=== PATIENT | female | born 1960 | race Caucasian/White ===

== ENCOUNTER 2021-03-08 21:18 | Inpatient (IN) | payer BC ==
[~2021-03-08] VITALS: Ht 147.3 cm; Wt 50.2 kg
[2021-03-08 22:30] LABS: Hematocrit 30.6 % (33.0-51.0); Hemoglobin 10.3 g/dL (11.5-16.0); Mean Corpuscular HGB 29.5 pg (26.0-34.0); Mean Corpuscular HGB Conc 33.7 g/dL (31.5-36.5); Mean Corpuscular Volume 88 fL (80-100); Mean Platelet Volume 12.8 fL (9.1-12.4); NRBC ABSOLUTE 0.08 K/mm3 (0.00-0.02); NRBC Auto 0.5 /100 WBC (0.0-0.2); Platelet Count 240 K/mm3 (150-400); RDW Coefficient Variation 14.2 % (11.7-14.2); RDW Standard Deviation 45.4 fL (35.1-46.3); Red Blood Cell Count 3.49 M/mm3 (3.80-5.20); White Blood Cell Count 15.47 K/mm3 (4.00-11.30)
[2021-03-08 22:43] LABS: Source, Urine Catheter
[2021-03-08 22:44] LABS: Bilirubin, Urine Neg (Neg); Blood, Urine 4+ (Neg); Glucose Qualitative, Urine 2+ (Neg); Ketones, Urine 1+ (Neg); Leukocyte Esterase, Urine Neg (Neg); Nitrite, Urine Neg (Neg); Protein, Urine 2+ (Neg); Specific Gravity, Urine 1.015 (1.003-1.022); Urobilinogen, Urine NORM (Normal)
[2021-03-08 22:46] LABS: International Normalized Ratio 2.6; Prothrombin Time Results 26.6 Sec (9.7-11.5)
[2021-03-08 22:47] LABS: Appearance, Urine Clear (Clear); Color, Urine Yellow (P-Yellow)
[2021-03-08 22:50] LABS: BAND PERCENT MAN 5 % (0-8); BASOPHILS PERCENT MAN 0 % (0-2); EOSINOPHILS PERCENT MAN 0 % (0-6); LYMPHOCYTES ABSOLUTE MAN 2.01 K/mm3 (0.84-5.20); LYMPHOCYTES PERCENT MAN 13 % (21-46); METAMYELOCYTE ABSOLUTE MAN 0.46 K/mm3 (0.00-0.00); METAMYELOCYTE PERCENT MAN 3 % (0-0); MONOCYTES ABSOLUTE MAN 0.92 K/mm3 (0.16-1.47); MONOCYTES PERCENT MAN 6 % (4-13); MYELOCYTE ABSOLUTE MAN 0.61 K/mm3 (0.00-0.00); MYELOCYTE PERCENT MAN 4 % (0-0); NEUTROPHILS ABSOLUTE MAN 11.44 K/mm3 (1.96-9.15); SEG NEUTROPHILS PERCENT MAN 69 % (41-73); TOTAL CELLS COUNTED 100
[2021-03-08 22:53] LABS: Magnesium, Blood 1.6 mg/dL (1.6-2.4)
[2021-03-08 22:58] LABS: Bacteria Few /hpf; Red Blood Cells, Urine 0-2 /hpf (0-2); Squamous Epithelial Cells Mod /hpf (Few); White Blood Cells, Urine Rare /hpf (0-5)
[2021-03-08 23:00] LABS: Bun/Creatinine Ratio 13.5 (12.0-20.0); Calcium, Blood 6.7 mg/dL (8.5-10.1); Creatinine, Blood 9.18 mg/dL (0.40-1.00); Potassium, Blood 5.1 mmol/L (3.5-5.5)
--- NOTE | 2021-03-09 01:00 | NUR ---
PT ARRIVES TO ICU 13 FROM ED AT 0035. PT SLIDE TRANSFERRED TO BED FROM [facility]. PT ABLE TO ANSWER QUESTIONS WITH SOME RELIABITY. PT'S TO ROOM WHO IS PT'S SUPPORT PERSON. HANNY, IS ABLE TO ANSWER ALL OF PT'S CARE QUESTIONS. PT HAS DIFFICULTY WITH MEMORY SECONDARY TO PREVIOUS TIA'S. LEVOPHED AT 10 MCG'S/MIN UPON ARRIVAL. THIS HAS BEEN DECREAED TO 8 MCG'S. WILL CONTINUE TO MONITOR FOR ABILITY TO TITRATE LEVOPHED LOWER. PT ON 2 L/M OXYGEN UPON ARRIVAL. HAVE REMOVED CANNULA. PT HAS BEEN ABLE TO MAINTAIN > 90 PERCENT SATURATIONS ON ROOM AIR. WILL REVIEW CHART AND PLAN OF CARE FOR THIS PT.
[2021-03-09 02:03] LABS: Acetaminophen, Random <2.0 ug/mL (10.0-30.0); Salicylate <1.7 mg/dL (2.8-20.0)
[2021-03-09 02:04] LABS: Osmolality, Serum 332 mos/KG (275-300)
[2021-03-09] MEDS ORDERED: JANTOVEN4 M2 PO (02:04)
[2021-03-09] MEDS ORDERED: WARF6 PO (02:05)
[2021-03-09] MEDS ORDERED: TRIAMT/HCTZ TAB 37. PO (02:07)
[2021-03-09] MEDS ORDERED: Ventolin/Prove6.7 GM INH (02:09)
[2021-03-09] MEDS ORDERED: METO25ER PO (02:10)
[2021-03-09] MEDS ORDERED: GEMFIBROZIL600 MG PO (02:11)
[2021-03-09] MEDS ORDERED: METFORMIN HCL500 M2 PO (02:11)
[2021-03-09] MEDS ORDERED: FOLI1 PO (02:13)
[2021-03-09] MEDS ORDERED: DIAZEPAM5 M2 PO (02:15)
[2021-03-09 03:00] LABS: U Amphetamine Screen Not Detected; U Barbituate Screen Not Detected; U Benzodiazapine Screen DETECTED; U Buprenorphine Screen Not Detected; U Cannabinoids Screen Not Detected; U Cocaine Screen Not Detected; U Methadone Screen Not Detected; U Methamphetamine Screen Not Detected; U Opiates Screen Not Detected; U Oxycodone Screen Not Detected; U Phencyclidine Screen Not Detected; U Propoxyphene Screen Not Detected
[2021-03-09 04:35] LABS: Hematocrit 27.4 % (33.0-51.0); Hemoglobin 9.7 g/dL (11.5-16.0)
[2021-03-09 05:04] LABS: Magnesium, Blood 1.5 mg/dL (1.6-2.4); Thyroid Stimulating Hormone 0.335 uIU/mL (0.360-4.800); Uric Acid, Blood 11.2 mg/dL (2.6-6.0)
[2021-03-09 05:07] LABS: Albumin, Blood 2.7 g/dL (3.4-5.0); Anion Gap 22 mmol/L (6-16); Blood Urea Nitrogen 122 mg/dL (8-24); Bun/Creatinine Ratio 14.1 (12.0-20.0); CO2, Blood 13 mmol/L (21-32); Calcium, Blood 6.4 mg/dL (8.5-10.1); Chloride, Blood 97 mmol/L (98-108); Creatinine, Blood 8.67 mg/dL (0.40-1.00); Glomerular Filtration Rate 5 (60-); Glucose, Blood 284 mg/dL (70-99); Phosphorus, Blood 9.6 mg/dL (2.5-4.9); Potassium, Blood 4.3 mmol/L (3.5-5.5); Sodium, Blood 132 mmol/L (136-145)
[2021-03-09] MEDS ORDERED: LISI5 PO (05:49)
[2021-03-09] MEDS ORDERED: ERGO50000 PO (05:50)
[2021-03-09] MEDS ORDERED: IRON18 MG PO (05:52)
[2021-03-09] MEDS ORDERED: ZYRTEC10 M2 PO (05:53)
--- NOTE | 2021-03-09 06:30 | NUR ---
ART LINE PATENT. HAVE BEEN ABLE TO TITRATE LEVOPHED DOWN TO 4 MCG'S. PT HAS BEEN ABLE TO SLEEP SINCE JUST AFTER ADMIT. REMAINS AT BEDSIDE AND IS VERY ATTENTIVE TO PT'S NEEDS. PT IN NO APPARENT DISTRESS. DOES HAVE COMPLAINT OF FEELING ACHY "ALL OVER" INCLUDING WHEN HER SKIN IS TOUCHED. PT HAS MAINTAINED ON ROOM AIR THROUGH THE NIGHT WITH SATURATIONS REMAINING > 90 PERCENT. HAS HAD 550 ML URINE OUTPUT FROM CATHETER. WILL CONTINUE TO MONITOR PT, AND WILL REPORT OFF TO ONCOMING RN.
--- NOTE | 2021-03-09 18:24 | NUR ---
SIMRAN IS A BIT MORE AWAKE THIS AFTERNOON, ENGAGING WITH SPOUSE AND STAFF. SHE HAS BEEN TURNED ROUTINELY. URINE OUTPUT OF NEARLY 3 LITERS, LEVOPHED DOWN TO 2MCG/MIN, BICARB AT 125ML/HR, ANTIBIOTICS INFUSING. TOLERATES BITES OF MEALS, SWALLOWS WELL BUT COMPLAINS OF PAIN IN THE THROAT AND ALL OVER, NOTIFIED AND ORDERS RECEIVED FOR TRAMADOL PER PT'S HOME ROUTINE. HEART RATE IN THE LOW 100'S, BP 90-100 SYSTOLIC, TITRATING LEVOPHED NECESSARY. ART LINE REMAINS INTACT, SALINE LOCK EACH A/C, CENTRAL LINE RIGHT NECK, AND DIALYSIS CATH LEFT CHEST ALL WNL.
--- NOTE | 2021-03-09 18:30 | NUR ---
PT INCONTINENT OF BOWEL, FONTAINE CATHETER CHANGED OUT PER PROTOCOL. PT TOLERATED WELL, STATED BETTER THAN THE NIGHT BEFORE.
--- NOTE | 2021-03-09 20:00 | NUR ---
ASSUMED CARE OF PT AT 1915. REPORT RECEIVED AT BEDSIDE. PT PRESENTS IN BED. AT BEDSIDE. ATTENTIVE TO PT'S NEEDS. PT ALERT AND ORIENTED. PLEASANT AND COOPERATIVE WITH CARE AND ASSESSMENT. DOES CONTINUE WITH SAYING THAT HER BODY IS ACHY "ALL OVER". CONTINUES ON LEVOPHED DRIP. WILL TITRATE TO MAINTAIN MAP > 65. PT ON ROOM AIR. SATURATIONS > 60. DOES HAVE ADEQUATE URINE OUTPUT. HAD FONTAINE CATHETER CHANGE OUT PRIOR TO THIS RN ASSUMING CARE. WILL REVIEW CHART AND PLAN OF CARE FOR THIS PT.
[2021-03-09 21:39] LABS: Source, Urine Catheter
[2021-03-09 21:40] LABS: Bilirubin, Urine Neg (Neg); Blood, Urine 5+ (Neg); Glucose Qualitative, Urine 3+ (Neg); Ketones, Urine Neg (Neg); Leukocyte Esterase, Urine 2+ (Neg); Nitrite, Urine Neg (Neg); Protein, Urine 2+ (Neg); Urobilinogen, Urine NORM (Normal)
[2021-03-09 21:56] LABS: Appearance, Urine Hazy (Clear); Bacteria Few /hpf; Color, Urine Yellow (P-Yellow); Red Blood Cells, Urine TNTC /hpf (0-2); Squamous Epithelial Cells Few /hpf (Few); Transitional Epithelial Cells Few /hpf (0-Rare)
--- NOTE | 2021-03-09 23:17 | NUR ---
PT TOLERATES TURNS IN BED. UNDERSTANDS RATIONALE FOR PROTECTION OF SKIN INTEGRITY. PT'S HAS LEFT FOR THE NIGHT. LEVOPHED CONTINUES.
[2021-03-10 04:26] LABS: Hematocrit 24.7 % (33.0-51.0)
[2021-03-10 04:47] LABS: Prothrombin Time Results 55.5 Sec (9.7-11.5)
[2021-03-10 04:55] LABS: Magnesium, Blood 1.3 mg/dL (1.6-2.4); Thyroxine (T4) 6.2 ug/dL (4.8-13.9)
[2021-03-10 05:01] LABS: Albumin, Blood 2.6 g/dL (3.4-5.0); Anion Gap 11 mmol/L (6-16); Blood Urea Nitrogen 82 mg/dL (8-24); Bun/Creatinine Ratio 17.2 (12.0-20.0); CO2, Blood 37 mmol/L (21-32); Calcium, Blood 6.3 mg/dL (8.5-10.1); Chloride, Blood 89 mmol/L (98-108); Creatinine, Blood 4.76 mg/dL (0.40-1.00); Glomerular Filtration Rate 10 (60-); Glucose, Blood 265 mg/dL (70-99); Sodium, Blood 137 mmol/L (136-145)
[2021-03-10 05:14] LABS: International Normalized Ratio 5.67
[2021-03-10 05:16] LABS: Phosphorus, Blood 4.9 mg/dL (2.5-4.9); Potassium, Blood 2.3 mmol/L (3.5-5.5)
--- NOTE | 2021-03-10 06:48 | NUR ---
PT HAS BEEN ABLE TO REST THIS NIGHT. HAVE NEEDED TO INCREASE LEVOPHED TO 4 MCG'S TO MAINTAIN MAP > 65. PT'S RETURNED TO ROOM AND STAYED THE NIGHT WITH PT. VERY ATTENTIVE TO PT'S NEEDS. CALL MADE TO DR TEJADA THIS MORNING CONCERNING POTASSIUM LEVEL BEING 2.3 ALL OTHER LAB VALUES GIVEN WELL. ORDERS RECEIVED. WILL CONTINUE TO MONITOR PT, AND WILL REPORT OFF TO ONCOMING RN.
--- NOTE | 2021-03-10 08:30 | NUR ---
PT HAS BEEN RESTING, AWAKENS EASILY TO VOICE. TAKING IN SOME BREAKFAST WITH THE HELP OF . ANTIBIOTIC STARTED, MAGNESIUM INFUSED AND POTASSIUM IS INFUSING. IV CHANGED TO NS @ 100ML/HR. LEVOPHED AT 4MCG/MIN. FONTAINE TO GRAVITY WITH CLEAR YELLOW RETURN. PT CONTINUES TO COMPLAIN OF PAIN ALL OVER, ESPECIALLY HER HEAD AND HER SKIN. DR. TEJADA AND DR. ARNETT IN TO SEE PT AND HAPPY THAT HE WAS ABLE TO SPEAK TO THEM.
--- NOTE | 2021-03-10 14:30 | NUR ---
Initial palliative care consult: Layne is a 60 year old with a history of DM, COPD, HTN, TIA, Aortic valve replacements in 2006 and 2008, Meniere's disease, ARF secondary to sepsis requiring short term HD in 2006, breast cancer with lumpectomy on left s/p chemo and radiation treatments. Layne was admitted from [facility] on 03/08/21. She lives with her , Marcelo, in [place]. Layen was admitted with ARF and fevers. At this point BCs are negative and no clear source of infection or cause of the ARF has been determined. She had a consult with Dr. Selby earlier today and there will be a CT of the abdomen to rule out an abdominal source. Marcelo states he is very happy with the care that Layne has received here and is pleased that he had his questions answered by Dr. Selby earlier today. Layne rested with her eyes closed during the visit. She would answer to yes no questions. She c/o head and generalized body pain and weakness. Marcelo states that in 2006 she had ARF and required several days of HD before her kidney function improved. Marcelo states in 2007 she had similar complaints of generalized body pain. Marcelo and Layne live in [place]. They have help available in their home and Marcelo's job allows flexible hours so he can be available when needed. Layne's mother is here visiting, she lives in [place]. Short supportive, establish rapport visit today as Layne is quite fatigued. PC will remain available for advanced care planning and symptom management as needed.
--- NOTE | 2021-03-10 15:25 | NUR ---
PREPARING TO GO TO CT FOR ABDOMEN/PELVIS SCAN. FIRST BAG OF ALBUMIN IN, POTASSIUM REPLACEMENT ALSO STARTED. FLUIDS CONTINUE AT 100ML/HR. LEVOPHED AT 4MCG/MIN. FONTAINE TO GRAVITY DRAINAGE IN ICE FOR 24 HR URINE COLLECTION. PLEASANT/COOPERATIVE, CONTINUES WITH HEADACHE AND ALL OVER BODY PAIN.
--- NOTE | 2021-03-10 15:28 | NUR ---
LAWRENCE HAS CONTINUED TO HAVE LEAKAGE AROUND HIS FONTAINE CATHETER, HE OPTED EARLIER TODAY TO WAIT TO SEE WHAT HIS UROLOGIST, WANTED TO DO. HE HAS SINCE CHANGED HIS MIND AND AGREED THAT WE COULD CHANGE IT OUT HERE TODAY. HE HAS HAD LESS THAN 100ML OUT IN HIS FONTAINE BAG, THE REMAINDER HAS BEEN LEAKING AROUND HIS CATHETER. HE IS WEARING AN INCONTINENT BRIEF AND THAT IS WORKING FOR HIM BUT HE WOULD PREFER TO NOT HAVE ANY LEAK AT ALL.
--- NOTE | 2021-03-10 16:30 | NUR ---
BACK FROM CT, PT TOLERATED WELL. BP STABLE, LEVOPHED TURNED TO STANDBY. AND MOM IN WITH PATIENT. TAKING IN FLUIDS WITH ENCOURAGEMENT.
--- NOTE | 2021-03-10 17:34 | NUR ---
SIMRAN CONTINUES TO ONLY TAKE PORTIONS OF HER FOOD, COMPLAIN OF ABDOMINAL "FULLNESS" AND HEADACHE. BLOOD PRESSURE REMAINS STABLE AND LEVOPHED IS STILL ON STANDBY. PT STATES THAT SHE IS READY TO GO HOME TOMORROW, SHE WAS ENCOURAGED TO MOVE HER OWN EXTREMITIES WITHOUT ASSISTANCE FOR THAT TO HAPPEN. SHE GRINNED. CONTINUES TO STATE THAT ANY MOVEMENT HURTS HER. HANDS ARE SWELLING, SKIN WARM TO THE TOUCH. POTASSIUM CONTINUES INFUSING AT 50ML/HR, NS AT 100ML/HR. FONTAINE TO GRAVITY DRAINAGE IN ICE BUCKET.
--- NOTE | 2021-03-10 18:18 | NUR ---
WAS JUST IN THE ROOM WITH SIMRAN AND WHILE HANGING HER NEXT ALBUMIN, SHE BEGAN CRYING AND GRIMACING. WHEN QUESTIONED SHE COMPLAINED OF ABDOMINAL PAIN. SHE SAID IT HADN'T HURT THAT BADLY. EPISODE LASTED ABOUT 4 MINUTES. PT WAS GIVEN HER PAIN MEDICATION.
--- NOTE | 2021-03-10 18:50 | NUR ---
ASSUMPTION OF CARE PT RESTING COMFORTABLY IN BED AFTER HAVING BM CLEAN UP DONE. PT AWAKE WITH AT BEDSIDE, ALERT AND ORIENTED. CURRENTLY RECEIVING ALBUMIN, POTASSIUM, NS @ 100 ML/HR, LEVOPHED ON STANDBY. FONTAINE PATENT AND DRAINING TO GRAVITY, 24 HR URINE COLLECTION UNTIL 10AM TOMORROW (03/11). VSS, ART LINE MAP >65, SPO2 >92% ON 2L NC, HR 80'S.
--- NOTE | 2021-03-10 20:41 | NUR ---
UPDATE DR. TEJADA CALLED REGARDING PT'S POTASSIUM OF 3.4, ORDER PLACED FOR AN ADDITIONAL 20 mEq'S TO BE GIVEN.
--- NOTE | 2021-03-11 00:10 | NUR ---
UPDATE PT HAD MEDIUM BM, PER PT ABD IS LESS TENDER. PT MOVING ARMS MORE THIS EVENING, ABLE TO LIFT OFF BED AND USING WET WASH CLOTH TO WIPE HANDS, ABLE TO PASS WASH CLOTH BACK AND FORTH BETWEEN HANDS. PER HE HAS NOT SEEN HER ABLE TO DO THIS IN DAYS. MINAL CONTINUES TO BE ON ICE FOR 24 HR URINE COLLECTION.
[2021-03-11 04:58] LABS: BASOPHILS ABSOLUTE AUTO 0.01 K/mm3 (0.00-0.23); BASOPHILS PERCENT AUTO 0 % (0-2); EOSINOPHILS ABSOLUTE AUTO 0.04 K/mm3 (0.00-0.68); EOSINOPHILS PERCENT AUTO 1 % (0-6); Hematocrit 21.8 % (33.0-51.0); Hemoglobin 7.2 g/dL (11.5-16.0); IMMATURE GRAN ABSOLUTE AUTO 0.02 K/mm3 (0.00-0.10); IMMATURE GRAN PERCENT AUTO 1 % (0-1); LYMPHOCYTES ABSOLUTE AUTO 0.62 K/mm3 (0.84-5.20); LYMPHOCYTES PERCENT AUTO 22 % (21-46); MONOCYTES PERCENT AUTO 11 % (4-13); Mean Corpuscular Volume 91 fL (80-100); Mean Platelet Volume 11.5 fL (9.1-12.4); NEUTROPHILS ABSOLUTE AUTO 1.87 K/mm3 (1.96-9.15); NEUTROPHILS PERCENT AUTO 65 % (41-73); Platelet Count 120 K/mm3 (150-400); RDW Coefficient Variation 13.5 % (11.7-14.2); RDW Standard Deviation 44.6 fL (35.1-46.3); White Blood Cell Count 2.86 K/mm3 (4.00-11.30)
[2021-03-11 05:03] LABS: Anion Gap Unable to Calculate mmol/L (6-16); Bun/Creatinine Ratio Unable to Calculate (12.0-20.0); Glomerular Filtration Rate Unable to Calculate (60-)
[2021-03-11 05:17] LABS: Prothrombin Time Results 56.2 Sec (9.7-11.5)
[2021-03-11 05:20] LABS: International Normalized Ratio 5.75
[2021-03-11 05:22] LABS: Albumin, Blood 3.6 g/dL (3.4-5.0); Anion Gap 2 mmol/L (6-16); Blood Urea Nitrogen 45 mg/dL (8-24); Bun/Creatinine Ratio 17.3 (12.0-20.0); CO2, Blood 36 mmol/L (21-32); Calcium, Blood 6.6 mg/dL (8.5-10.1); Chloride, Blood 104 mmol/L (98-108); Glomerular Filtration Rate 20 (60-); Glucose, Blood 105 mg/dL (70-99); Magnesium, Blood 1.6 mg/dL (1.6-2.4); Phosphorus, Blood 2.1 mg/dL (2.5-4.9); Potassium, Blood 3.3 mmol/L (3.5-5.5); Sodium, Blood 142 mmol/L (136-145)
--- NOTE | 2021-03-11 05:40 | NUR ---
DR TEJADA NOTIFIED REGARDING CRITICAL INR. OTHER LAB VALUES REVIEWED WITH DR TEJADA; NEW ORDERS PLACED FOR K AND KPHOS RIDERS, WELL LAB RECHECK FOR K AND HGB 1 HR AFTER RIDERS COMPLETE.
--- NOTE | 2021-03-11 08:30 | NUR ---
ASSESSMENT- PT AWAKE, ALERT, COOPERATIVE. STATES HAS GENERALIZED WEAKNESS BUT IMPROVING. CAN LIFT ARMS UP AND MOVE LEGS WEAKLY. SINUS RHYTHM, BP STABLE. RIGHT RADIAL IBETH DI. RIJ CENTRAL LINE WITH NS 75 CC/HR, POTASSIUM REPLACEMENT INFUSING. AFEBRILE. NO S/S BLEEDING. NO N/V. EATING WITH ASSISTANCE FROM . UO VIA FONTAINE-24 HOUR URINE COLLECTION. LEFT CHEST DIALYSIS CATH DI. REPOSITIONED.
--- NOTE | 2021-03-11 10:15 | NUR ---
DR. GALICIA HERE-REVIEWED PLAN WITH PT AND PT'S , UPDATED. RIGHT RADIAL IBETH D/C-CATH INTACT. PRESSURE HELD UNTIL HEMOSTASIS OBTAINED, REBLED, AND PRESSURE HELD AGAIN, SITE WITHOUT HEMATOMA, CMS TO HAND WNL, DENIES ANY NUMBNESS/TINGLING, CAP REFILL LESS THAN 3 SECONDS, HAND WARM. VSS.
--- NOTE | 2021-03-11 11:09 | NUR ---
PT WITH NO S/S BLEEDING. RIGHT RADIAL ARTERIAL SITE DI, CMS WNL. INCONTINENT X 2-LINEN CHANGE, BATH DONE. AT BEDSIDE, ASSISTS WITH CARES.
[2021-03-11 12:31] LABS: Hematocrit 23.1 % (33.0-51.0); Hemoglobin 7.5 g/dL (11.5-16.0)
--- NOTE | 2021-03-11 13:19 | NUR ---
RESULTS OF LABS CALLED TO DR. TEJADA. PT EATING. DENIES COMPLAINTS
[2021-03-11 13:20] LABS: Stool Occult Blood Guaiac 1 Pos (Neg)
--- NOTE | 2021-03-11 13:56 | NUR ---
DR. ARNETT HERE-UPDATED. PT EATING, BETTER APPETITE. NO S/S BLEEDING. STOOL POSITIVE FOR OCCULT BLOOD.
--- NOTE | 2021-03-11 15:42 | NUR ---
VSS. PCU STATUS. HAS BEEN ABLE TO SLEEP. ASSISTED TO REPOSITION. FAMILY AT BEDSIDE.
--- NOTE | 2021-03-11 17:20 | NUR ---
ABLE TO STAND AND TRANSFER TO BEDSIDE COMMODE, MOVES SLOWLY BUT STEADY ON FEET. STATES FEELING BETTER TODAY. NO C/O SKIN HURTING, C/O HEADACHE-IMPROVED WITH TYLENOL. VSS. RIJ CENTRAL LINE INTACT, CHEST DIALYSIS CATHETER DI. RIGHT WRIST SITE DI, BOTH ARMS AND HANDS WITH SOME SWELLING. APPETITE IMPROVED. PT'S HERE AT BEDSIDE, ASSISTS WITH CARES. NS AT 75 CC/HR. UO GOOD.
[2021-03-11 19:57] LABS: Hematocrit 22.5 % (33.0-51.0); Hemoglobin 7.2 g/dL (11.5-16.0)
--- NOTE | 2021-03-11 20:06 | NUR ---
ASSUMPTION OF CARE REPORT RECEIVED FROM FROYLAN RN. PT SLEEPING, EASILY AWAKENS TO VOICE. PT SHARED THAT SHE IS FEELING MUCH BETTER TODAY, APPETITE HAS INCREASED AND ABLE TO GET OUT OF BED. VSS. ART LINE REMOVAL DRESSING INTACT. NO S/S OF BLEEDING. FONTAINE PATENT, DRAINING TO GRAVITY. COMPLAINING OF 4/10 HEADACHE PAIN, DENIES NEED FOR PAIN MEDS AT THIS TIME; WILL CONTINUE TO MONITOR. ALERT AND ORIENTED, HOPEFUL TO GET SOME GOOD SLEEP TONIGHT.
[2021-03-12 04:39] LABS: BASOPHILS ABSOLUTE AUTO 0.03 K/mm3 (0.00-0.23); BASOPHILS PERCENT AUTO 1 % (0-2); EOSINOPHILS ABSOLUTE AUTO 0.14 K/mm3 (0.00-0.68); EOSINOPHILS PERCENT AUTO 3 % (0-6); Hemoglobin 7.1 g/dL (11.5-16.0); IMMATURE GRAN ABSOLUTE AUTO 0.04 K/mm3 (0.00-0.10); IMMATURE GRAN PERCENT AUTO 1 % (0-1); LYMPHOCYTES ABSOLUTE AUTO 0.83 K/mm3 (0.84-5.20); LYMPHOCYTES PERCENT AUTO 17 % (21-46); MONOCYTES PERCENT AUTO 8 % (4-13); Mean Corpuscular HGB 29.6 pg (26.0-34.0); Mean Corpuscular HGB Conc 32.3 g/dL (31.5-36.5); Mean Corpuscular Volume 92 fL (80-100); Mean Platelet Volume 11.7 fL (9.1-12.4); NEUTROPHILS ABSOLUTE AUTO 3.35 K/mm3 (1.96-9.15); NEUTROPHILS PERCENT AUTO 70 % (41-73); Platelet Count 129 K/mm3 (150-400); RDW Coefficient Variation 13.2 % (11.7-14.2); White Blood Cell Count 4.79 K/mm3 (4.00-11.30)
[2021-03-12 04:53] LABS: Albumin, Blood 3.2 g/dL (3.4-5.0); Anion Gap 3 mmol/L (6-16); Blood Urea Nitrogen 28 mg/dL (8-24); Bun/Creatinine Ratio 14.7 (12.0-20.0); CO2, Blood 32 mmol/L (21-32); Calcium, Blood 7.2 mg/dL (8.5-10.1); Chloride, Blood 107 mmol/L (98-108); Glomerular Filtration Rate 29 (60-); Glucose, Blood 98 mg/dL (70-99); International Normalized Ratio 1.68; Phosphorus, Blood 1.9 mg/dL (2.5-4.9); Potassium, Blood 3.2 mmol/L (3.5-5.5); Prothrombin Time Results 17.6 Sec (9.7-11.5); Sodium, Blood 142 mmol/L (136-145)
--- NOTE | 2021-03-12 05:16 | NUR ---
UPDATE CRITICAL MAGNESIUM OF 1.[address] TEJADA. OTHER LAB VALUES REVIEWED AT THIS TIME WELL. NEW ORDERS PLACED FOR KCL, MAG SULFATE, AND KPHOS. HGB 7.[address] TEJADA.
--- NOTE | 2021-03-12 07:56 | NUR ---
CARE OF PT ASSUMED AT 0700. PT AWAKE IN BED W C/O HEADACHE 4.5-5/10, TYLENOL GIVEN. PT RECEIVED 2GM MAG REPLACEMENT, PT RECIEVING KPHOS 20MMOL AND K+ 30MEQ VIA CENTRAL LINE. PER PHARMACY OKAY TO RUN BOTH, K+ DECREASED TO 40CC/HR. PT IN SINUS TACH RATE 100-126 W SOME PVC'S. PT STATES SHE FEELS WEAK D/T "LOW BLOOD VOLUME" AND WOULD LIKE TO RECEIVE A TRANSFUSION. WILL PASS ON TO MD. SATS 93% ON RA, LUNGS CLEAR. HD CATH TO LEFT SC, DRSG C/D/I. CL TO RIJ. PT WOULD LIKE HD CATH REMOVED, PT INFORMED MD MAY WANT TO KEEP UNTIL DISCHARGE BUT WILL INQUIRE ABOUT THAT WELL.
--- NOTE | 2021-03-12 08:40 | NUR ---
DR CHAPARRO IN TO SEE PT; FULL UPDATE GIVEN. PT NOW MED FLOOR W TELE STATUS. PT TO RECEIVE ONE UNIT PRBC. DR TEJADA CALLED AND UPDATED REGARDING NEW ORDERS, TACHYCARDIA W ECTOPY (R ON T PVC'S). LABS TO REPEATED AFTER RIDERS.
--- NOTE | 2021-03-12 08:57 | NUR ---
K+ PLACED ON STANBY UNTIL AFTER KPHOS COMPLETE.
--- NOTE | 2021-03-12 09:38 | NUR ---
PT C/O DISCOMFORT BETWEEN SHOULDER BLADES. HEART RATE 140 W INCREASED ECTOPY. STAT MG ORDERED, DR CHAPARRO CALLED AND UPDATED. STAT D-DIMER AND TROP ORDERED. WILL COMPLETE EKG. FAMILY PRACTICE PHYSICIAN NOTIFIED.
--- NOTE | 2021-03-12 09:48 | NUR ---
EKG COMPLETED AND SHOWN TO MD. LABS DRAWN. BP STABLE. WILL KEEP IN ICU UNTIL RESOLVED.
--- NOTE | 2021-03-12 09:52 | NUR ---
HEART RATE HAS SLOWED TO 110. 02 PLACED AT 2L VIA N/C. PT'S AT BEDSIDE.
--- NOTE | 2021-03-12 10:03 | NUR ---
BLOOD DRAWN FOR TYPE AND CROSS. PT STATES SHE IS FEELING BETTER.
[2021-03-12 10:12] LABS: Magnesium, Blood 1.7 mg/dL (1.6-2.4); Troponin I <0.015 ng/mL (0.000-0.040)
--- NOTE | 2021-03-12 10:27 | NUR ---
CALLED FOR REPORT;RN WILL CALL BACK
--- NOTE | 2021-03-12 10:42 | NUR ---
PT SLEEPING, APPEARS RESTFUL. HEART RATE AND RHTHYM IMPROVED. KPHOS COMPLETED. K+ STARTED
[2021-03-12 14:31] LABS: Phosphorus, Blood 2.4 mg/dL (2.5-4.9); Potassium, Blood 4.3 mmol/L (3.5-5.5)
--- NOTE | 2021-03-12 14:49 | NUR ---
REPEAT LABS CALLED TO DR TEJADA. TRANSFUSION COMPLETE, PT TOLERATED WELL WITHOUT ANY ADVERSE REACTION. PT STATES SHE FEELS BETTER OVERALL. HEART RATE AND RHYTHM REMAIN STABLE. DR CHAPARRO CALLED AND GIVEN UPDATE. PT TO BE TRANSFERED UP TO MEDICAL FLOOR.
--- NOTE | 2021-03-12 16:00 | NUR ---
PT IS A ICU TRANSFER DUE TO ARF. PT WAS FROM [facility] AND WAS TRASPORTED HERE. DR TEJADA IS CONSULTED. PT DID NOT RECEIVED ANY DIALYSIS BUT HAS TEMPORARY PORT ON HER LEFT CHEST THAT IS TEMPORARY. PT ALSO HAS CENTRAL LINE ON RIGHT NECK. PT WAS SUPPOSED TO BE TRANSFERRED HERE ARMATURE WINDER REPAIR BUT HAD EPISODES OF HIGH HR TACHY, AND NEEDED TO RECEIVE BLOOD AND ABNORMAL LAB VALUES. RECEIVED 1 UNIT AT ICU. PT IS ADA DIET AND 1P ASSIST. IS CAREGIVER. HX OF [facility]VE REPAIR, DM, AND COPD. PT DENIES CP OR ANY DISCOMFORT. DC'D THE MINAL THIS AFTERNOON AND AC/HS. PT ORIENTED IN THE ROOM AND CALL LIGHT WITHIN REACH.
--- NOTE | 2021-03-12 17:00 | NUR ---
CALLED DR CHAPARRO FOR PT ELAVATED BP; WILL PUT A BP MEDS;
--- NOTE | 2021-03-12 18:06 | NUR ---
CALLED DR TEJADA FOR PHOS OF 2.4; AIRCRAFT LOG CLERK STATED SHE WAS NOT ABLE TO PUT AN ORDER FOR THIS AFTERNOON; AND WERE THINKING THAT WILL PUT THE ORDER. THIS RN CALLED AND PUT AN ORDER FOR THIS PT.
--- NOTE | 2021-03-12 19:00 | NUR ---
Spiritual care note: Per admit trigger, I was tasked to meet with pt to offer information on advanced care planning. I spoke to Layne and her at bedside. Both asked great questions and decided to complete POLST. They travel throughout the [place] and liked the idea of pt's wishes going into a State registry. They wanted privacy to discuss. I advised I would remain available to assist.
[2021-03-12 23:30] LABS: Phosphorus, Blood 2.3 mg/dL (2.5-4.9); Potassium, Blood 3.1 mmol/L (3.5-5.5)
[2021-03-13 06:26] LABS: Hematocrit 32.1 % (33.0-51.0); Hemoglobin 10.9 g/dL (11.5-16.0); Mean Corpuscular HGB 29.8 pg (26.0-34.0); Mean Corpuscular Volume 88 fL (80-100); Mean Platelet Volume 11.4 fL (9.1-12.4); Platelet Count 149 K/mm3 (150-400); RDW Coefficient Variation 13.5 % (11.7-14.2); RDW Standard Deviation 43.3 fL (35.1-46.3); Red Blood Cell Count 3.66 M/mm3 (3.80-5.20); White Blood Cell Count 7.57 K/mm3 (4.00-11.30)
--- NOTE | 2021-03-13 06:27 | NUR ---
SHIFT SUMMARY: AOX3, WEAK BUT ABLE TO GET TO BSC ON HER OWN. IVF INFUSING AT 75ML/HR. INCREASE URINE OUTPUT EVERY 5-10 MINUTES, URINE CLEAR. VSS EXCEPT SOME INCREASE IN TACHYCARDIA. TELE REPORTED TRIGEMENY RYTHEM EVERY TIME SHE GOT UP TO BSC WITH PVC'S BETWEEN. HR WOULD GO TACHYCARDIC WITH PALPITATIONS AND FLUTTER SYMPTOM. NO CHEST PAIN. SOME DIZZINESS. REPEAT NA 139, MAG CL 1.0, K+ 3.1, AND PHOS 2.3. MD NOTIFIED AGAIN ORDER FOR MAG RIDER 3 GRAMS, KPHOS RIDER 30MMOL, AND CATHETER IF PATIENT WANTS TO GET SOME SLEEP DUE TO INCREASE URINE OUTPUT. ESTIMATED [id number] OUTPUT ON THIS SHIFT. CATHETER ALLOWED HER TO GET SOME SLEEP. RAN KPHOS, MAG, AND NS ALL NIGHT. ANTIBOTICS GIVEN. JUST ANNETTA LABS TO REFLECT MG AND KPHOS. HAMMER THIS AM. TYLENOL GIVEN. ORDER TO REMOVE CATHETER BUT PATIENT WANTS TO WAIT TO SEE WHAT HER OUTPUT WILL BE BEFORE REMOVING. IVF STILL INFUSING. WILL REPORT TO DAYSHIFT. NOW AT BEDSIDE. CALL LIGHT IN REACH.
[2021-03-13 06:40] LABS: International Normalized Ratio 1.22
[2021-03-13 06:42] LABS: Albumin, Blood 3.7 g/dL (3.4-5.0); Anion Gap 10 mmol/L (6-16); Blood Urea Nitrogen 14 mg/dL (8-24); CO2, Blood 26 mmol/L (21-32); Chloride, Blood 99 mmol/L (98-108); Creatinine, Blood 1.27 mg/dL (0.40-1.00); Glomerular Filtration Rate 46 (60-); Glucose, Blood 248 mg/dL (70-99); Magnesium, Blood 2.4 mg/dL (1.6-2.4); Phosphorus, Blood 5.2 mg/dL (2.5-4.9); Potassium, Blood 3.5 mmol/L (3.5-5.5); Sodium, Blood 135 mmol/L (136-145)
--- NOTE | 2021-03-13 18:25 | NUR ---
SHIFT SUMMARY PT ALERT AND AT BEDSIDE PRIMARY CAREGIVER. PT CENTAL LINE AND DIALYSIS PORT TAKEN OUT BY THE SURGEON AT BEDSIDE TODAY. NO BLEEDING NOTED. CALLED DR CHAPARRO FOR CONFIRMATION TO STILL GIVE THE COUMADIN TONIGHT. PT IS ON TELE; SINUS TACHY AND 120S- 130S WHEN WALKING; 100'S AT REST. PT MINAL OVIEDO'Garth TODAY, URINATING JUST FINE. PT WORRIED ABOUT GOING HOME TODAY OR TOMORROW IF HEART RATE IS STILL UP EVERYTIME SHE WALKS; DR JOHNSON AND METOPROLOL GIVEN THIS AM. BED IS IN THE LOWEST POSITION AND CALL LIGHT WITHIN REACH
[2021-03-14 04:01] LABS: Hematocrit 31.8 % (33.0-51.0); Hemoglobin 10.8 g/dL (11.5-16.0); Mean Corpuscular HGB 29.4 pg (26.0-34.0); Mean Corpuscular Volume 87 fL (80-100); Mean Platelet Volume 11.3 fL (9.1-12.4); Platelet Count 184 K/mm3 (150-400); RDW Coefficient Variation 13.2 % (11.7-14.2); RDW Standard Deviation 42.2 fL (35.1-46.3); Red Blood Cell Count 3.67 M/mm3 (3.80-5.20); White Blood Cell Count 8.12 K/mm3 (4.00-11.30)
[2021-03-14 04:18] LABS: Albumin, Blood 3.5 g/dL (3.4-5.0); Anion Gap 8 mmol/L (6-16); Blood Urea Nitrogen 20 mg/dL (8-24); Bun/Creatinine Ratio 13.5 (12.0-20.0); CO2, Blood 25 mmol/L (21-32); Calcium, Blood 8.9 mg/dL (8.5-10.1); Chloride, Blood 104 mmol/L (98-108); Creatinine, Blood 1.48 mg/dL (0.40-1.00); Glomerular Filtration Rate 38 (60-); Glucose, Blood 156 mg/dL (70-99); Magnesium, Blood 1.5 mg/dL (1.6-2.4); Phosphorus, Blood 2.4 mg/dL (2.5-4.9); Potassium, Blood 3.2 mmol/L (3.5-5.5); Sodium, Blood 137 mmol/L (136-145)
[2021-03-14 04:22] LABS: International Normalized Ratio 1.56; Prothrombin Time Results 16.4 Sec (9.7-11.5)
--- NOTE | 2021-03-14 06:29 | NUR ---
SHIFT SUMMAR: SIMRAN IS DOING BETTER. INDEPENDENT TO THE BATHROOM. GOOD HYDRATION T/O NIGHT. VS GOOD EXCEPT WITH SOME TACHYCARDIA. RUNNING 110'S. NO PAIN THIS SHIFT. IV ANTIBOTIC PRESCRIBED. SLEPT OFF AND ON. THIS AM LABS SHOWED ANOTHER DROP IN MAG TO 1.5, PHOS-2.4, CREATINE-1.48, K+ 3.2, GFR 38. SHE IS WORRIED THAT SHE WILL NOT BE GOING HOME TODAY DUE TO ANOTHER DROP IN HER ELECTROLYTES. TELE REMAINED TACHY, NO ARRYTHMIAS. NO OTHER CHANGES TO REPORT. CALL LIGHT REMAINED IN REACH.
--- NOTE | 2021-03-14 18:33 | NUR ---
PATIENT IS ALERT AND ORIENTED AND COOPERATIVE WITH CARE. HER HR JUMPED TO 130 BPM THIS AM. SHE HAS BLLOD IN HER STOOL, DR. GODOY CONSULTED. PATIENT HAS A HX OF GI BLEEDS. THE PATIENT'S HAS BEEN AT THE BEDSIDE ALL DAY. LANTUS WILL BE ORDERED AT HS. WILL CONTINUE TO MONITOR
--- NOTE | 2021-03-14 18:37 | NUR ---
DR. CHAPARRO NOTIFIED OF PT'S BLOOD GLUCOSE OF 375. DR. CHAPARRO ORDERED LANTUS PEN 15 UNITS AT BEDTIME.
[2021-03-15 04:38] LABS: Hematocrit 19.6 % (33.0-51.0); Hemoglobin 6.5 g/dL (11.5-16.0)
[2021-03-15 04:52] LABS: International Normalized Ratio 1.76; Prothrombin Time Results 18.4 Sec (9.7-11.5)
[2021-03-15 04:53] LABS: Anion Gap 6 mmol/L (6-16); Blood Urea Nitrogen 29 mg/dL (8-24); CO2, Blood 25 mmol/L (21-32); Calcium, Blood 8.2 mg/dL (8.5-10.1); Chloride, Blood 110 mmol/L (98-108); Creatinine, Blood 1.26 mg/dL (0.40-1.00); Glomerular Filtration Rate 46 (60-); Glucose, Blood 174 mg/dL (70-99); Magnesium, Blood 1.4 mg/dL (1.6-2.4); Phosphorus, Blood 1.3 mg/dL (2.5-4.9); Potassium, Blood 3.5 mmol/L (3.5-5.5); Sodium, Blood 141 mmol/L (136-145)
--- NOTE | 2021-03-15 10:43 | NUR ---
TRANSFER TO ICU: REPORT RECEVIED FROM JESSENIA Benitez RN. PT TRANSFERRED FROM ROOM 305 & ARRIVED IN ICU-07 AT APPROX 0955. ON ARRIVAL, THE PT IS ALERT & ORIENTED. SHE DENIES ANY DIZZINESS OR LIGHTHEADEDNESS, VSS. LS CLEAR T/O, PT ON RA W/ O2 SATS > 92%. MONITOR SHOWS SR-ST W/ HR 90-100s, HTN. PT STS ABD IS TENDER TO PALPATION. YANY RED BLOOD NOTED W/ BM ON ARRIVAL. VOIDS URINE W/O DIFFICULTY. SKIN CONDITION OVERALL CDI & PT REPOSITIONS SELF FOR COMFORT. WILL CONTINUE TO MONITOR & UPDATE NEEDED.
[2021-03-15 16:19] LABS: BASOPHILS ABSOLUTE AUTO 0.04 K/mm3 (0.00-0.23); BASOPHILS PERCENT AUTO 0 % (0-2); EOSINOPHILS PERCENT AUTO 0 % (0-6); Hemoglobin 11.2 g/dL (11.5-16.0); IMMATURE GRAN ABSOLUTE AUTO 0.19 K/mm3 (0.00-0.10); IMMATURE GRAN PERCENT AUTO 2 % (0-1); LYMPHOCYTES ABSOLUTE AUTO 0.53 K/mm3 (0.84-5.20); LYMPHOCYTES PERCENT AUTO 5 % (21-46); MONOCYTES ABSOLUTE AUTO 0.22 K/mm3 (0.16-1.47); MONOCYTES PERCENT AUTO 2 % (4-13); Mean Corpuscular HGB 29.6 pg (26.0-34.0); Mean Corpuscular Volume 85 fL (80-100); NEUTROPHILS ABSOLUTE AUTO 9.01 K/mm3 (1.96-9.15); NEUTROPHILS PERCENT AUTO 90 % (41-73); NRBC ABSOLUTE 0.03 K/mm3 (0.00-0.02); NRBC Auto 0.3 /100 WBC (0.0-0.2); Platelet Count 243 K/mm3 (150-400); RDW Coefficient Variation 13.7 % (11.7-14.2); RDW Standard Deviation 42.8 fL (35.1-46.3); Red Blood Cell Count 3.78 M/mm3 (3.80-5.20); White Blood Cell Count 9.99 K/mm3 (4.00-11.30)
--- NOTE | 2021-03-15 17:30 | NUR ---
DR CHAPARRO: PROVIDER IN UNIT TO SEE PT. UPDATED HIM ON PT's ROOM ASSIGNMENT AT [facility], 7A-3. ACCEPTING PROVIDER IS MERYL FATIMA. ORDERS PLACED FOR LR @ 75 ML/HR. TRANSPORT CALLED TO UPDATED THAT THEY WILL BE PICKING UP THE PT CLOSER TO 191.
--- NOTE | 2021-03-15 18:57 | NUR ---
SHIFT SUMMARY: NO ACUTE CHANGES SINCE PRIOR UPDATES. PT REMAINS A&O, PLEASANT & COOPERATIVE. PLAN IS FOR COBRA TX TO [facility] THIS EVENING AT APPROX 1915. LS ARE CLEAR, PT ON RA W/ O2 SATS > 92%. MONITOR SHOWS SR-ST W/ HR 90-100s, BP STABLE. THE PT CONTINUES TO HAVE LOOSE STLS W/ YANY RED BLEEDING NOTED. VOIDS URINE W/O DIFFICULTY. SKIN CONDITION OVERALL CDI, PT COMPLETED Q2H REPOSITIONING THIS SHIFT TO MAINTAIN SKIN INTEGRITY. WILL CONTINUE TO MONITOR & REPORT OFF TO RN AT [facility].
--- NOTE | 2021-03-15 19:26 | NUR ---
COBRA TRANSFER: REPORT CALLED TO MAGALIS CRUZ IN MICU AT [facility]. [facility] IN UNIT FOR PT TRANSFER & PT TAKEN OUT VIA GURNEY AT APPROX 1920. THE PT's & MOTHER ARE W/ HER AT TIME OF TX & HAVE TAKEN ALL PT BELONGINGS OUT AT THAT TIME. TRANSFER PAPERWORK PRINTED & PLACED INTO TRANSFER PACKET, SIGNATURE SHEET COPIED & PLACED ON CHART WELL.
[2021-03-18 15:08] LABS: A/G RATIO 1.6 (0.7-1.7); ALBUMIN 3.7 g/dL (2.9-4.4); ALPHA-1-GLOBULIN 0.4 g/dL (0.0-0.4); ALPHA-2-GLOBULIN 0.9 g/dL (0.4-1.0); BETA GLOBULIN 0.8 g/dL (0.7-1.3); GAMMA GLOBULIN 0.4 g/dL (0.4-1.8); GLOBULIN, TOTAL 2.4 g/dL (2.2-3.9); IMMUNOGLOBULIN A, QN, SERUM 54 mg/dL (87-352); IMMUNOGLOBULIN G, QN, SERUM 485 mg/dL (586-1602); IMMUNOGLOBULIN M, QN, SERUM 62 mg/dL (26-217); M-SPIKE Not Observed g/dL (Not Observed); PROTEIN, TOTAL, SERUM 6.1 g/dL (6.0-8.5)
== END 2021-03-15 19:20 | disposition short-term general hospital (02) | DRG 871 ==
LOC: ER 21:18 → MEDS 23:20 → ICUW 23:20 → MEDS 03-12 15:16 → ICUE 03-15 10:04
PROVIDERS: Emergency Medicine; Internal Medicine; Internal Medicine Critical Care Medicine; Internal Medicine Nephrology; Nurse Practitioner Acute Care; Pharmacist Pharmacotherapy; ADMIT Internal Medicine
PROC: 03HB33Z Insertion of Infusion Device into Right Radial Artery, Percutaneous Approach (ICD-10-PCS; 2021-03-08)
PROC: 02HV33Z Insertion of Infusion Device into Superior Vena Cava, Percutaneous Approach (ICD-10-PCS; 2021-03-08)
PROC: 3E043XZ Introduction of Vasopressor into Central Vein, Percutaneous Approach (ICD-10-PCS; 2021-03-08)
PROC: 05H633Z Insertion of Infusion Device into Left Subclavian Vein, Percutaneous Approach (ICD-10-PCS; 2021-03-08)
PROC: 30233N1 Transfusion of Nonautologous Red Blood Cells into Peripheral Vein, Percutaneous Approach (ICD-10-PCS; principal; 2021-03-15)
DX: A41.59 Other Gram-negative sepsis (principal); J96.01 Acute respiratory failure with hypoxia; G92 Toxic encephalopathy; R65.21 Severe sepsis with septic shock; N17.9 Acute kidney failure, unspecified; E87.2 Acidosis; E87.1 Hypo-osmolality and hyponatremia; J44.1 Chronic obstructive pulmonary disease with (acute) exacerbation; N12 Tubulo-interstitial nephritis, not specified as acute or chronic; K92.2 Gastrointestinal hemorrhage, unspecified; Z20.822 Contact with and (suspected) exposure to COVID-19; Z79.01 Long term (current) use of anticoagulants; Z95.2 Presence of prosthetic heart valve; E87.5 Hyperkalemia; E88.09 Other disorders of plasma-protein metabolism, not elsewhere classified; E86.9 Volume depletion, unspecified; E83.39 Other disorders of phosphorus metabolism; I49.3 Ventricular premature depolarization; D64.9 Anemia, unspecified; K80.20 Calculus of gallbladder without cholecystitis without obstruction; N18.9 Chronic kidney disease, unspecified; I12.9 Hypertensive chronic kidney disease with stage 1 through stage 4 chronic kidney disease, or unspecified chronic kidney disease; E11.22 Type 2 diabetes mellitus with diabetic chronic kidney disease
CPT/HCPCS: 36415; 36430; 71045; 74176; 74177; 76770; 80048; 80069; 81001; 82272; 82530; 82533; 82784; 82947; 83735; 83883; 83930; 83970; 84100; 84132; 84155; 84165; 84436; 84443; 84484; 84550; 85014; 85018; 85025; 85027; 85379; 85610; 85730; 86334; 86850; 86900; 86901; 86923; 87040; 87077; 87086; 87186; 93005; 93010; 93306; 94640; 94760; 99285-25; A9270; C9113; G0480; J0610; J0881; J1650; J2405; J2543; J3475; J3480; J7030; J7050; J7060; J7070; J7120; J7512; P9016; P9046; Q9967